=== PATIENT | female | born 1990 | race African-American/Black ===

== ENCOUNTER 2018-07-18 18:10 | Emergency (ER) | payer MEDICAID ==
[~2018-07-18] VITALS: Ht 157.5 cm; Wt 45.5 kg
[2018-07-18 18:14] VITALS: Ht 157.5 cm; Wt 45.5 kg
[2018-07-18] MEDS ORDERED: NAPROSYN500 MG PO (18:50)
[2018-07-18 19:01] VITALS: BP 130/74
== END 2018-07-18 19:01 | disposition home or self-care (01) ==
LOC: D.ER 18:10
DX: M35.7 Hypermobility syndrome (principal); M79.605 Pain in left leg; M79.604 Pain in right leg

== ENCOUNTER 2019-04-15 07:55 | Emergency (ER) | payer MEDICAID ==
[~2019-04-15] VITALS: Ht 157.5 cm; Wt 43.2 kg
[~2019-04-15 07:55] MED LIST: NAPROSYN500 MG PO
[2019-04-15 08:02] VITALS: Ht 157.5 cm; Wt 43.2 kg
[2019-04-15] MEDS ORDERED: HYDROCODON-ACE1 EAC7 PO ×2 (08:21→08:27)
[2019-04-15] MEDS ORDERED: PREDNISONE10 MG PO (08:21)
[2019-04-15 08:37] VITALS: BP 120/81
== END 2019-04-15 08:41 | disposition home or self-care (01) ==
LOC: D.ER 07:55
DX: M25.561 Pain in right knee (principal)

== ENCOUNTER 2019-11-30 10:00 | Emergency (ER) | payer MEDICAID ==
[~2019-11-30] VITALS: Ht 157.5 cm; Wt 43.2 kg
[~2019-11-30 10:00] MED LIST changes: +HYDROCODON-ACE1 EAC7 PO; +PREDNISONE10 MG PO
[2019-11-30 10:29] VITALS: BP 122/68; Ht 157.5 cm; Wt 43.2 kg
[2019-11-30 11:40] LABS: BASOPHILS 0.6 % (0-2); EOSINOPHILS 3.6 % (0-7); HEMATOCRIT 35.6 % (36.0-48.0); HEMOGLOBIN 11.9 g/dL (12-16); IMMATURE GRANULOCYTES 0.2 % (0-5); LYMPHOCYTES 24.5 % (15-50); MCH 27.2 pg (26.0-34.0); MCHC 33.4 g/dL (31.0-37.0); MCV 81.3 fL (80.0-100.0); MEAN PLATELET VOLUME 11.1 fL (7.4-10.4); MONOCYTES 8.4 % (2-11); NEUTROPHILS 62.7 % (40-80); PLATELET COUNT 221 10x3/uL (130-400); RBC 4.38 10x6/uL (4.00-5.40); RDW 13.2 % (11.5-14.5); WBC 5.2 10x3/uL (4.8-10.8)
[2019-11-30 12:06] LABS: HCG URINE NEGATIVE (NEGATIVE)
[2019-11-30 12:16] LABS: BILIRUBIN NEGATIVE (NEGATIVE); KETONE NEGATIVE (NEGATIVE); NITRITE NEGATIVE (NEGATIVE); UROBILINOGEN NORMAL mg/dL (< 2)
[2019-11-30 12:17] LABS: BACTERIA MANY HPF (NONE SEEN); EPITHELIAL CELLS 0-5 /hpf (0-5); WHITE CELLS - URINE 25-50 HPF (0-4)
[2019-11-30 14:07] LABS: CALC OSMOLALITY 274 mosm/kg (275-300); CALCIUM 8.7 mg/dL (8.5-10.1); CARBON DIOXIDE 28.2 mmol/L (21.0-32.0); CHLORIDE - SERUM 104 mmol/L (98-107); CREATININE - SERUM 0.7 mg/dL (0.6-1.3); GLUCOSE 92 mg/dL (74-106); POTASSIUM - SERUM 4.4 mmol/L (3.5-5.1); SODIUM 139 mmol/L (136-145); UREA NITROGEN 5 mg/dL (7-18); eGFR NON AFRICAN AMERICAN > 90 mL/min (90-120)
[2019-11-30 14:11] LABS: ALBUMIN 4.3 g/dL (3.4-5.0); ALKALINE PHOSPHATASE 47 U/L (30-120); ALT (SGPT) 11 U/L (10-68); BILIRUBIN - TOTAL 0.36 mg/dL (0.2-1.3); MAGNESIUM - SERUM 1.9 mg/dL (1.8-2.4)
[2019-11-30] MEDS ORDERED: DICLOFENAC SODI50 MG PO (15:44)
[2019-11-30] MEDS ORDERED: DOXYCYCLINE HY100 M2 PO (15:44)
== END 2019-11-30 17:05 | disposition home or self-care (01) ==
LOC: D.ER 10:00
PROVIDERS: Family Medicine
DX: R10.9 Unspecified abdominal pain (principal); D64.9 Anemia, unspecified; R31.9 Hematuria, unspecified; N39.0 Urinary tract infection, site not specified